=== PATIENT | female | born 1980 | race African-American/Black ===

== ENCOUNTER 2017-05-21 18:56 | Emergency (ER) | payer MEDICAID ==
[2017-05-21 19:37] LABS: BASOPHILS 0.3 % (0-2); IMMATURE GRANULOCYTES 0.3 % (0-5); LYMPHOCYTES 28.8 % (15-50); MCH 21.4 pg (26.0-34.0); MCHC 26.1 g/dL (31.0-37.0); MCV 81.7 fL (80.0-100.0); MONOCYTES 7.1 % (2-11); NEUTROPHILS 60.5 % (40-80); PLATELET COUNT 467 10x3/uL (130-400); RBC 3.23 10x6/uL (4.00-5.40); RDW 34.9 % (11.5-14.5); WBC 6.1 10x3/uL (4.8-10.8)
[2017-05-21 19:52] LABS: ALBUMIN 3.7 g/dL (3.4-5.0); ALKALINE PHOSPHATASE 41 U/L (46-116); ALT (SGPT) 10 U/L (10-68); BILIRUBIN - TOTAL 0.23 mg/dL (0.2-1.3); CALC OSMOLALITY 279 mosm/kg (275-300); CALCIUM 9.5 mg/dL (8.5-10.1); CARBON DIOXIDE 23.6 mmol/L (21.0-32.0); CHLORIDE - SERUM 106 mmol/L (98-107); CREATININE - SERUM 0.7 mg/dL (0.6-1.3); GLUCOSE 97 mg/dL (74-106); PROTEIN - SERUM 8.1 g/dL (6.4-8.2); SODIUM 140 mmol/L (136-145); UREA NITROGEN 15 mg/dL (7-18); eGFR NON AFRICAN AMERICAN > 90 mL/min (90-120)
[2017-05-21 20:17] LABS: HEMATOCRIT 25.5 % (36.0-48.0); HEMOGLOBIN 6.9 g/dL (12-16)
== END 2017-05-21 22:32 | disposition home or self-care (01) ==
LOC: D.ER 18:56
PROVIDERS: Family Medicine
DX: D64.9 Anemia, unspecified (principal)